=== PATIENT | male | born 2000 | race Caucasian/White ===

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

== ENCOUNTER → 2021-04-16 | Outpatient (CLI) | payer BC ==
[2021-04-16 18:15] LABS: ALBUMIN 4.3 GM/DL (3.2-5.2); ALT/SGPT 62 U/L (12-78); BILIRUBIN,TOTAL 1.2 MG/DL (0.2-1.0); BLOOD UREA NITROGEN 17 MG/DL (7-18); CALCIUM LEVEL 9.9 MG/DL (8.5-10.1); CARBON DIOXIDE LEVEL 27 MEQ/L (21-32); CHLORIDE LEVEL 104 MEQ/L (98-107); CHOLESTEROL LEVEL 169 MG/DL (<200); CHOLESTEROL RISK RATIO 3.595 (<5); CREATININE FOR GFR 0.97 MG/DL (0.70-1.30); GLUCOSE, FASTING 79 MG/DL (70-100); HDL CHOLESTEROL 47 MG/DL (>40); LDL CHOLESTEROL 104 MG/DL (<100); NON-HDL-C 122 MG/DL; POTASSIUM SERUM 5.1 MEQ/L (3.5-5.1); SODIUM LEVEL 139 MEQ/L (136-145); TOTAL 25(OH) VITAMIN D 42.5 NG/ML (30.0-100.0); TOTAL PROTEIN 7.5 GM/DL (6.4-8.2); TRIGLYCERIDES LEVEL 89 MG/DL (<150)
== END ==
LOC: M WUC 08:44
PROVIDERS: ATTEND Pediatrics
DX: E78.49 Other hyperlipidemia (principal)

== ENCOUNTER 2021-08-07 09:17 | Inpatient (IN) | payer BC ==
[~2021-08-07] VITALS: Ht 180.3 cm; Wt 96.0 kg
[2021-08-07 10:31] LABS: HEMOGLOBIN 15.9 g/dl (13.5-17.5); MEAN CORPUSCULAR HGB CONC 33.8 g/dl (32.0-36.5); MEAN CORPUSCULAR VOLUME 91.6 fl (80.0-96.0); PLATELET COUNT, AUTOMATED 337 10^3/uL (150-450); RED BLOOD COUNT 5.13 10^6/uL (4.30-6.10); WHITE BLOOD COUNT 7.6 10^3/uL (4.0-10.0)
[2021-08-07 11:01] LABS: AMPHETAMINES LEVEL URINE NEGATIVE (NEGATIVE); BARBITURATES URINE NEGATIVE (NEGATIVE); BENZODIAZEPINES URINE NEGATIVE (NEGATIVE); CANNABINOIDS URINE NEGATIVE (NEGATIVE); COCAINE METABOLITE URINE NEGATIVE (NEGATIVE); METHADONE URINE NEGATIVE (NEGATIVE); OPIATES URINE NEGATIVE (NEGATIVE); PHENCYCLIDINE URINE NEGATIVE (NEGATIVE)
[2021-08-07 11:12] LABS: ACETAMINOPHEN LEVEL < 2.0 UG/ML (10.0-30.0); ALT/SGPT 54 U/L (12-78); BILIRUBIN,DIRECT 0.2 MG/DL (0.0-0.2); BILIRUBIN,TOTAL 0.9 MG/DL (0.2-1.0); BLOOD UREA NITROGEN 12 MG/DL (7-18); CALCIUM LEVEL 9.6 MG/DL (8.5-10.1); CARBON DIOXIDE LEVEL 30 MEQ/L (21-32); CHLORIDE LEVEL 106 MEQ/L (98-107); CREATININE FOR GFR 0.92 MG/DL (0.70-1.30); ETHYL ALCOHOL (ETHANOL) < 0.003 % (0.000-0.010); GLUCOSE, FASTING 93 MG/DL (70-100); POTASSIUM SERUM 4.9 MEQ/L (3.5-5.1); SALICYLATE LEVEL < 1.7 MG/DL (5.0-30.0); SODIUM LEVEL 138 MEQ/L (136-145); TOTAL PROTEIN 7.2 GM/DL (6.4-8.2)
[2021-08-07] MEDS ORDERED: ACETAMINOPHEN TAB 650MG DOSE (2X325MG) PO ONE (11:45)
[2021-08-07] MEDS ORDERED: MAALOX 30 ML SUSP *UDC PO PRN (14:25)
[2021-08-07] MEDS ORDERED: hydrOXYzine 50 MG TAB PO PRN (14:25)
[2021-08-07] MEDS ORDERED: MOM 30ML SUSPENSION UDC PO PRN (14:25)
[2021-08-07] MEDS ORDERED: ACETAMINOPHEN TAB 650MG DOSE (2X325MG) PO PRN (14:25)
--- NOTE | 2021-08-07 15:51 | MHIPNPDOC ---
[facility] Progress Note Progress Note DATE OF SERVICE: 08/07/21 Presented by PSA, meets criteria for involuntary admission. Referred by therapist at its due to suicidal ideation with plan to drive car into a tree. Suffering SI which has been worse for the last month. Reports depression tearfulness, decreased appetite and poor sleep, toxicology screen negative. No home medications. Vital Signs Vital Signs Date Time Temp Pulse Resp B/P (MAP) Pulse Ox O2 Delivery O2 Flow Rate FiO2 08/07/21 09:36 99.0 66 16 131/82 (98) 99 Room Air Laboratory Data 24H Labs Laboratory Tests 2 08/07/21 09:43: Nucleated Red Blood Cells % (auto) 0.0, Anion Gap 2L, Calcium Level 9.6, Total Bilirubin 0.9, Direct Bilirubin 0.2, Aspartate Amino Transf (AST/SGOT) 24, Mani ine Aminotransferase (ALT/SGPT) 54, Alkaline Phosphatase 97, Total Protein 7.2, Albumin 4.0, Albumin/Globulin Ratio 1.3, Thyroid Stimulating Hormone (TSH) 1.240, Salicylates Level < 1.7L, Urine Opiates Screen NEGATIVE, Urine Methadone Screen NEGATIVE, Acetaminophen Level < 2.0L, Urine Barbiturates Screen NEGATIVE, Urine Phencyclidine Screen NEGATIVE, Urine Amphetamines Screen NEGATIVE, Urine Benzodiazepines Screen NEGATIVE, Urine Cocaine Metabolite Screen NEGATIVE, Urine Cannabinoids Screen NEGATIVE, Ethyl Alcohol Level < 0.003 CBC/BMP Laboratory Tests 08/07/21 09:43 Current Medications Current Medications Medications (Trade) Dose Ordered Sig/Jessica Route PRN Reason Start Time Stop Time Status Last Admin Dose Admin Acetaminophen (Tylenol Tab) 650 mg Q6HP PRN PO HEADACHE or MILD DISCOMFORT 08/07/21 14:25 Al Hydrox/Mg Hydrox/Simethicone (Mylanta) 30 ml Q4HP PRN PO HEARTBURN/INDIGESTION 08/07/21 14:25 Hydroxyzine HCl (Atarax) 50 mg Q6HP PRN PO ANXIETY/AGITATION 08/07/21 14:25 Magnesium Hydroxide (Milk Of Magnesia) 30 ml DAILYPRN PRN PO CONSTIPATION 08/07/21 14:25 Trazodone HCl (Desyrel) 50 mg QHSP PRN PO INSOMNIA 08/07/21 14:25 Allergies Coded Allergies: No Known Drug Allergies (Verified Allergy, Unknown, 08/07/21) MICHAEL HAYS MD Aug 07, 2021 15:50
[2021-08-07] MEDS ORDERED: HOME MED LIST COMPLETE! XX SCH (17:15)
[2021-08-07 17:51] LABS: RSV AMPLIFICATION NEGATIVE (NEGATIVE)
[2021-08-07 18:39] VITALS: BP 137/83
[2021-08-08 06:41] VITALS: BP 120/60
--- NOTE | 2021-08-08 07:36 | MHHPEPDOC ---
General Date Of Admission: Aug 07, 2021 Legal Status: 9.39 Chief Complaint ". History of Present Illness HISTORY OF THE PRESENT ILLNESS: Patient is a 21 -year-old , male, who has a past psychiatric hx of depression. "Therapist Ezequiel Berry, at [facility] referred me here. Asked if I can make to psychiatric appointment Aug 15 2021, stated, said I'm not sure I can be there." "I was upset and crying about my grandfather and grandmother, they are the closest people to me and I can't be here without them, my grandmother has Alzheimer's, grandfather last year a few days before Halloween". He also reports break up in November from ex, "she made a new account on [employer] to contact me, she was saying she is happy my grandfather and was laughing back in April". Reports he puts himself down alot, feels "like a burden to everyone". reports depression started since age 14 or 15. R eports being alone, continues to have few friends. Reports last time had suicidal thoughts was yesterday when therapist called police, stated had "plan to drive really fast and eventually crash car". Per pSA reports had thoughts of crashing car into tree. Psychiatric Review of Systems Depression (2 or more weeks): depressed mood, anhedonia ("a good couple months"), insomnia/hypersomnia ("all i wanna do is sleep"), feelings of worthlesness, decreased energy ("always down"), psychomotor changes, suicidal thoughts Christina (4 or more days of): denies Psychosis: denies Anxiety: gen/non-specific anxiety Anxiety/ 6 months or more of: restlessness, keyed up, easily fatigued, diff iculty concentrating, sleep disturbance Past Psychiatric History Previous Psychiatric Diagnosis: anxiety, depression Previous Psychiatric Admissions: none Suicide Attempts: denies Psychiatric Follow-up: [facility], has appointment scheduled with Dr Jay Aug 15, has not seen yet Psychiatric medications: took self off fluoxetine 60 mg, last dose couple months ago, states wasn't helping. cephalexin for allergies Past Medical History Medical Problems seasonal allergies, denies other conditions Head Injury: No Seizures: No Hospitalizations: No Surgeries: No Family Medical/Psychiatric HX Medical Problems depression both sides of family Psychiatric Disorders: Yes Addiction: No Suicide Attemps/Completions: No Addiction History denies Social History Childhood: Grew up in [place], [place] Abuse/Trauma:denies Current Living Situation: Currently lives with bio parents Education: grade 12, did 1 semester college for technology Employment: Work at [employer] [address], [employer] Social Support: Friend Raghav, parents Legal: denies Marital: single Mental Status Examination General Appearance: well groomed, appears stated age, hospital scubs/clothing Build: average Demeanor: withdrawn, guarded Eye Contact: avoidant Activity: slowed, anxious Behavior: cooperative, loss of interests, anhedonia, withdrawn Speech: clear, slow, low in volume Mood: depressed, anxious Mood "down" Affect: constricted Thought Process: logical/linear, depressed Thought Content (Delusions): none reported Thought Content (Other): none reported Thought Content (Aggressive): none reported Perception (Hallucinations): none reported Perception (Other): none reported Cognition (Impairment of): none reported Cognition(Intelligence Est.): average Oriented: Awake, Alert, Oriented times three Insight: fair Judgment: Poor Psychosis: Denies Diagnoses Major depression disorder, moderate, recurrent, with anxious distress A-FIB/CHADSVASC A-FIB History Current/History of A-Fib/PAF?: No Current PO Anticoag Therapy: No Age/Risk Factor Scoring CHADSVASC: CHADSVASC Response (Comments) Value Age Risk Factor Age < 65 years old 0 Gender Risk Factor Male 0 Hx of CHF No 0 Hx of HTN No 0 Hx of Stroke/TIA/or VTE No 0 Hx of Diabetes No 0 Hx of Vascular Disease No 0 Total 0 Treatment Treatment ordered: NONE Reason Anticoagulant not given: Not indicated/[id number] Assessment Patient is a 21 -year-old , male, who has a past psychiatric hx of depression, who presents with police from [facility] appointment for suicidal ideation and plan to crash car in context of worsening depression and SI for months. reports chronic stressors of grandfather passing this month last year, grandmother with alzheimer's and online arguments with ex gf within the past few months after breakup. Report s"depression is just there" and doesn't change with season, denies christina or psychotic symptom hx. Denies drug use and labs unremarkable. TSH wnl. Reports d/c of prozac months ago due to limited benefit. Meets criteria for MDD with more than 2 weeks, low mood, anhedonia, hopelessness, low energy, suicidal ideations, increased sleep. Agrees to start effexor 37.5 mg xr with plan to titrate if tolerated well, discussed side effects including rare serotonin syndrome, sexual se, g.i disturbance, increased BP, suicidal thoughts in those under age 25. Initial Treatment Plan 1. Patient was admitted on a [9.39] status. 2. Complete history was obtained. 3. With patients permission, family will be contacted and database will be expanded. 4. Patients medication regimen will be reviewed and changed accordingly. 5. Patient will be provided with protected environment. 6. Patient will be treated with individual, group, and milieu therapies. 7. Patient will receive supportive psych-education. 8. Discharge planning will commence immediately. 9. Outpatient follow-up treatment will be strongly recommended. 10. The initial treatment plan will focus initially on: * Depression. * Risk for suicide. ESTIMATED LENGTH OF STAY: 2-5 DAYS. TIME SPENT COUNSELING AND COORDINATING INITIAL CARE: 35 minutes. Tobacco Cessation Screen If Patient is a Smoker none N/A-No Antipsychotics Vital Signs Vital Signs Date Time Temp Pulse Resp B/P (MAP) Pulse Ox O2 Delivery O2 Flow Rate FiO2 08/08/21 06:41 97.7 63 18 120/60 (80) 99 Room Air Laboratory Data 24H Labs Laboratory Tests 2 08/07/21 09:43: Nucleated Red Blood Cells % (auto) 0.0, Anion Gap 2L, Calcium Level 9.6, Total Bilirubin 0.9, Direct Bilirubin 0.2, Aspartate Amino Transf (AST/SGOT) 24, Alanine Aminotransferase (ALT/SGPT) 54, Alkaline Phosphatase 97, Total Protein 7.2, Albumin 4.0, Albumin/Globulin Ratio 1.3, Thyroid Stimulating Hormone (TSH) 1.240, Salicylates Level < 1.7L, Urine Opiates Screen NEGATIVE, Urine Methadone Screen NEGATIVE, Acetaminophen Level < 2.0L, Urine Barbiturates Screen NEGATIVE, Urine Phencyclidine Screen NEGATIVE, Urine Amphetamines Screen NEGATIVE, Urine Benzodiazepines Screen NEGATIVE, Urine Cocaine Metabolite Screen NEGATIVE, Urine Cannabinoids Screen NEGATIVE, Ethyl Alcohol Level < 0.003 08/07/21 16:45: Coronavirus (COVID-19)(PCR) NEGATIVE, Influenza Type A (RT-PCR) NEGATIVE, Influenza Type B (RT-PCR) NEGATIVE, Respiratory Syncytial Virus (PCR) NEGATIVE CBC/BMP Laboratory Tests 08/07/21 09:43 Medications No Active Prescriptions or Reported Meds Allergies Coded Allergies: No Known Drug Allergies (Verified Allergy, Unknown, 08/07/21) MICHAEL HAYS MD Aug 08, 2021 07:36
[2021-08-08] MEDS: VENLAFAXINE **XR** 37.5 MG CAPSULE PO SCH (08:51)
--- NOTE | 2021-08-08 11:16 | HPEPDOC ---
[facility] Medical History & Physical Date of Admission Aug 08, 2021 Date of Service: Aug 08, 2021 History and Physical CHIEF COMPLAINT: " Feeling depressed" HISTORY OF PRESENT ILLNESS: 29-year-old male with a past medical history of depression was sent to the emergency department for concerns of suicidal ideations. He reports over the last 1 year he has had multiple stressors including losing his grandfather, dealing with his grandmother who has advanced Alzheimer's disease, and coming out of a relationship that has led him to feel depressed and sad. He reportedly told his therapist that he would crash his car. Therefore he was sent for further evaluation. He denied homicidal ideations, however, does get thoughts of suicide but reported he would not act upon it and had no intentions to. He reported there is no way that he would crash his car as he loves it too much. At this junction, he denied headaches, blurry vision, chest pain, shortness of breath, abdominal pain, nausea, vomiting, problems with urination and bowel movements. PAST MEDICAL HISTORY: Depression PAST SURGICAL HISTORY: None reported SOCIAL HISTORY: Reports he lives at home with his parents. He denies drinking, smoking and use of recreational drugs FAMILY HISTORY: Noncontributory ALLERGIES: Please see below. REVIEW OF SYSTEMS: 10 point review of system was negative except for what is noted in the HPI HOME MEDICATIONS: Please see below. PHYSICAL EXAMINATION: VITAL SIGNS: Please see below General: Lying in bed, no acute distress Head/Neck/Throat: Trachea midline, mucous membranes moist Eyes: Sclera anicteric, PERRLA Thorax: Normal respiratory effort on room air, lungs clear to auscultation bilaterally, no wheezes/rales/rhonchi Cardiovascular: Normal rate, regular rhythm, normal S1, S2; no S3, S4, rubs/gallops/murmurs Abdomen: Bowel sounds present, soft/nontender/nondistended Genitourinary: No CVA tenderness, no Melendez in place Musculoskeletal: Moving all extremities, no edema Skin: Warm, dry Neurologic: AAOx3, speech fluent and goal-directed, no focal deficits, grossly intact LABORATORY DATA: See below. IMAGING: No imaging to review at this time MICROBIOLOGY: Please see below. ASSESSMENTPLAN: #Depression -We will defer management to psychiatry team and to further assess his suicidal ideations; and this was also explained to the patient #DVT prophylaxis -Encourage ambulation This history and physical was done in the presence of a mail manager Medicine team will sign off, reconsult if needed. Thank you for involving us in the care of Mr. Hill. Vital Signs Vital Signs Date Time Temp Pulse Resp B/P (MAP) Pulse Ox O2 Delivery O2 Flow Rate FiO2 08/08/21 09:39 Room Air 08/08/21 06:41 97.7 63 18 120/60 (80) 99 Laboratory Data Labs 24H Laboratory Tests 2 08/07/21 16:45: Coronavirus (COVID-19)(PCR) NEGATIVE, Influenza Type A (RT-PCR) NEGATIVE, Influenza Type B (RT-PCR) NEGATIVE, Respiratory Syncytial Virus (PCR) NEGATIVE Home Medications No Active Prescriptions or Reported Meds Allergies Coded Allergies: No Known Drug Allergies (Verified Allergy, Unknown, 08/07/21) A-FIB/CHADSVASC A-FIB History Current/History of A-Fib/PAF?: No Age/Risk Factor Scoring CHADSVASC: CHADSVASC Response (Comments) Value Age Risk Factor Age < 65 years old 0 Gender Risk Factor Male 0 Hx of CHF No 0 Hx of HTN No 0 Hx of Stroke/TIA/or VTE No 0 Hx of Diabetes No 0 Hx of Vascular Disease No 0 Total 0 GI STOKES M.D. Aug 08, 2021 11:16
[2021-08-08 16:23] VITALS: BP 135/63
[2021-08-09 07:20] VITALS: BP 138/58
[2021-08-09] MEDS: VENLAFAXINE **XR** 37.5 MG CAPSULE PO SCH (08:13)
[2021-08-09] MEDS ORDERED: LIDOCAINE 5% (LIDODERM) PATCH TD SCH (12:45)
--- NOTE | 2021-08-09 12:45 | MHIPNPDOC ---
[facility] Progress Note Progress Note DATE OF SERVICE: 08/09/21 HISTORY: Patient is a 21 -year-old , male, who has a past psychiatric hx of depression. "Therapist Ezequiel Berry, at [facility] referred me here. Asked if I c an make to psychiatric appointment Aug 15 2021, stated, said I'm not sure I can be there." "I was upset and crying about my grandfather and grandmother, they are the closest people to me and I can't be here without them, my grandmother has Alzheimer's, grandfather last year a few days before Halloween". He also reports break up in November from ex, "she made a new account on [employer] to contact me, she was saying she is happy my grandfather and was laughing back in April". Reports he puts himself down alot, feels "like a burden to everyone". reports depression started since age 14 or 15. Reports being alone, continues to have few friends. Reports last time had suicidal thoughts was yesterday when therapist called police, stated had "plan to drive really fast and eventually crash car". Per pSA reports had thoughts of crashing car into tree. Interval: Has not been attending groups, reports he likes to keep things to himself and this leads to a downward spiral with dark thoughts. Discussed how engaging in group can help build trust and that he can work on coping skills rather than isolating. Reports all her medications without side effects, does report some lower back pain when walking a bit, used to sit a lot reportedly and not overly bothersome. Does not feel he needs any treatment, but agrees to use a lidocaine patch. Last was suicidal ideation he pauses and states I guess not today, reports sleep to be good, states he will be thinking about going to groups when he is ready. No other acute physical complaints. Reports anxiety sometimes in context of social situations, due to trusting others and generalized worries. VITAL SIGNS: See below. NEW TEST RESULTS: None CURRENT MEDICATIONS: See below. MENTAL STATUS EXAMINATION: Patient is a 21-year old male, who is in no acute distress, mildly overweight, avoiding eye contact, appears stated age, good hygiene. Speech: Is somewhat slowed, nonspontaneous. Language skills are fair. Thought processes including: Linear and logical. Thought content: Reports on and off fleeting suicidal thoughts, but not today. Abstract reasoning, and computation: Good description of associations: Normal Description of abnormal or psychotic thoughts: Denies. Judgment: Poor, improving Insight: Poor, improving Orientation: X4 Recent and remote memory: Intact. Attention span and concentration: Fair. Language: Irish. Fund of knowledge: Average Mood: "Alright" affect: Withdrawn, dysthymic, constricted, mood congruent, appropriate DIAGNOSES: Major depression disorder, moderate, recurrent, with anxious distress Generalized anxiety disorder Social anxiety disorder ASSESSMENT: Patient continues to be depressed, mildly anxious although improved compared to yesterday reportedly, still continues to be anxious about going to [facility] and confronting feelings, emotions, unsafe thoughts. Continues to report vague suicidal ideations, but denies today on interview. Requires continued stay for stabilization of depressed mood and suicidal thoughts, safety plan MANAGEMENT PLAN: Continue Effexor present 37.5 mg extended release, will consider increasing dose to treatment dose of 75 mg xr if continues to have slow improvement, encouraged to go to groups, lidocaine patch ordered for back pain. TIME SPENT: 15 minutes. Vital Signs Vital Signs Date Time Temp Pulse Resp B/P (MAP) Pulse Ox O2 Delivery O2 Flow Rate FiO2 08/09/21 08:38 Room Air 08/09/21 07:20 98.1 68 20 138/58 (84) 99 Current Medications Current Medications Medications (Trade) Dose Ordered Sig/Jessica Route PRN Reason Start Time Stop Time Status Last Admin Dose Admin Acetaminophen (Tylenol Tab) 650 mg Q6HP PRN PO HEADACHE or MILD DISCOMFORT 08/07/21 14:25 08/08/21 18:42 Al Hydrox/Mg Hydrox/Simethicone (Mylanta) 30 ml Q4HP PRN PO HEARTBURN/INDIGESTION 08/07/21 14:25 Home Med (Home Med List Complete!) ASDIRECTED XX 08/07/21 17:15 08/07/21 17:17 DC Hydroxyzine HCl (Atarax) 50 mg Q6HP PRN PO ANXIETY/AGITATION 08/07/21 14:25 Magnesium Hydroxide (Milk Of Magnesia) 30 ml DAILYPRN PRN PO CONSTIPATION 08/07/21 14:25 Trazodone HCl (Desyrel) 50 mg QHSP PRN PO INSOMNIA 08/07/21 14:25 Venlafaxine HCl (Effexor Xr) 37.5 mg QAM PO 08/08/21 09:00 08/09/21 08:13 Allergies Coded Allergies: No Known Drug Allergies (Verified Allergy, Unknown, 08/07/21) MICHAEL HAYS MD Aug 09, 2021 12:44
[2021-08-09] MEDS: LIDOCAINE 5% (LIDODERM) PATCH TD SCH ×2 (13:05→13:14)
[2021-08-09 16:00] VITALS: BP 130/69
[2021-08-10 06:26] VITALS: BP 122/66
[2021-08-10] MEDS: LIDOCAINE 5% (LIDODERM) PATCH TD SCH (08:24)
[2021-08-10] MEDS: VENLAFAXINE **XR** 37.5 MG CAPSULE PO SCH (08:25)
--- NOTE | 2021-08-10 11:17 | MHIPNPDOC ---
[facility] Progress Note Progress Note DATE OF SERVICE: 08/10/21 HISTORY: Patient is a 21 -year-old , male, who has a past psychiatric hx of depression. "Therapist Ezequiel Berry, at [facility] referred me here. Asked if I can make to psychiatric appointment Aug 15 2021, stated, said I'm not sure I can be there." "I was upset and crying about my grandfather and grandmother, they are the closest people to me and I can't be here without them, my grandmother has Alzheimer's, grandfather last year a few days before Halloween". He also reports break up in November from ex, "she made a new account on [employer] to contact me, she was saying she is happy my grandfather and was laughing back in April". Reports he puts himself down alot, feels "like a burden to everyone". reports depression started since age 14 or 15. Reports being alone, continues to have few friends. Reports last time had suicidal thoughts was yesterday when therapist called police, stated had "plan to drive really fast and eventually crash car". Per pSA reports had thoughts of crashing car into tree. Interval: Has started to attend groups, chart reviewed. States mood is improving although continues to have some depression, states mood today is pretty good, sleep is good but interrupted due to being on the inpatient unit, agreeable to increasing Effexor XR release 75 mg daily treatment dose possible discharge on Friday if continues to improve. VITAL SIGNS: See below. NEW TEST RESULTS: None CURRENT MEDICATIONS: See below. MENTAL STATUS EXAMINATION: Patient is a 21-year old male, who is in no acute distress, mildly overweight, improved eye contact, appears stated age, good hygiene. Speech: Mildly slowed, spontaneous Language skills are fair. Thought processes including: Linear and logical. Thought content: Reports on and off fleeting suicidal thoughts, again reports not having any suicidal thoughts today Abstract reasoning, and computation: Good description of associations: Normal Description of abnormal or psychotic thoughts: Denies. Judgment: Fair, improving Insight: Fair, improving Orientation: X4 Recent and remote memory: Intact. Attention span and concentration: Fair. Language: Yakut. Fund of knowledge: Average Mood: "Pretty good" affect: Withdrawn, less dysthymic, mildly constricted DIAGNOSES: Major depression disorder, moderate, recurrent, with anxious distress Generalized anxiety disorder Social anxiety disorder ASSESSMENT: Patient continues to report improvements in depression, going to State and begin the unit talking about his emotions, feelings, and engaging art projects he says has been helpful for him instead of isolating and ruminating on negative thoughts. Agreeable to increasing Effexor to 75 mg once daily, requires continued stay for stabilization of depressed mood and suicidal thoughts, safety planning. MANAGEMENT PLAN: Increased Effexor to 75 mg extended release, encouraged to continue to go to groups, discontinued lidocaine patch ordered for back pain, has been refusing. TIME SPENT: 15 minutes. Vital Signs Vital Signs Date Time Temp Pulse Resp B/P (MAP) Pulse Ox O2 Delivery O2 Flow Rate FiO2 08/10/21 08:10 Room Air 08/10/21 06:26 97.7 61 18 122/66 (84) 98 Current Medications Current Medications Medications (Trade) Dose Ordered Sig/Jessica Route PRN Reason Start Time Stop Time Status Last Admin Dose Admin Acetaminophen (Tylenol Tab) 650 mg Q6HP PRN PO HEADACHE or MILD DISCOMFORT 08/07/21 14:25 08/08/21 18:42 Al Hydrox/Mg Hydrox/Simethicone (Mylanta) 30 ml Q4HP PRN PO HEARTBURN/INDIGESTION 08/07/21 14:25 Home Med (Home Med List Complete!) ASDIRECTED XX 08/07/21 17:15 08/07/21 17:17 DC Hydroxyzine HCl (Atarax) 50 mg Q6HP PRN PO ANXIETY/AGITATION 08/07/21 14:25 Lidocaine (Lidoderm Patch) 1 patch DAILY TD 08/09/21 09:00 Lidocaine (Lidoderm Patch) 1 patch DAILY TD 08/09/21 12:45 08/09/21 12:50 DC Magnesium Hydroxide (Milk Of Magnesia) 30 ml DAILYPRN PRN PO CONSTIPATION 08/07/21 14:25 Non-Formulary Medication ( See Comment Field Below ) REMOVE LIDODERM PATCH DAILY@ XX 08/09/21 21:00 08/09/21 21:48 Trazodone HCl (Desyrel) 50 mg QHSP PRN PO INSOMNIA 08/07/21 14:25 Venlafaxine HCl (Effexor Xr) 37.5 mg QAM PO 08/08/21 09:00 08/10/21 08:25 Allergies Coded Allergies: No Known Drug Allergies (Verified Allergy, Unknown, 08/07/21) MICHAEL HAYS MD Aug 10, 2021 11:17
[2021-08-10 16:16] VITALS: BP 120/63
[2021-08-10] MEDS: traZODone 50 MG TAB PO PRN (20:11)
[2021-08-11 06:21] VITALS: BP 115/53
[2021-08-11] MEDS: VENLAFAXINE **XR** 75MG CAPSULE PO SCH (08:17)
--- NOTE | 2021-08-11 15:25 | MHIPNPDOC ---
[facility] Progress Note Progress Note DATE OF SERVICE: 08/11/21 HISTORY: Patient is a 21 -year-old , male, who has a past psychiatric hx of depression. "Therapist Ezequiel Berry, at [facility] referred me here. Asked if I c an make to psychiatric appointment Aug 15 2021, stated, said I'm not sure I can be there." "I was upset and crying about my grandfather and grandmother, they are the closest people to me and I can't be here without them, my grandmother has Alzheimer's, grandfather last year a few days before Halloween". He also reports break up in November from ex, "she made a new account on [employer] to contact me, she was saying she is happy my grandfather and was laughing back in April". Reports he puts himself down alot, feels "like a burden to everyone". reports depression started since age 14 or 15. Reports being alone, continues to have few friends. Reports last time had suicidal thoughts was yesterday when therapist called police, stated had "plan to drive really fast and eventually crash car". Per pSA reports had thoughts of crashing car into tree. Interval: Reports improved mood, denies side effects from increasing dose of Effexor. Introduced myself to him as currently he is scheduled to see me in the outpatient practice. He is aware of his medications available to him if he needs them, stated he used trazodone last night for sleep due to the addition of a roommate, feels that he is getting good sleep here but will not need the medication upon discharge. VITAL SIGNS: See below. NEW TEST RESULTS: None CURRENT MEDICATIONS: See below. MENTAL STATUS EXAMINATION: Patient is a 21-year old male, who is dressed in personal clothing, good hygiene and grooming. Speech: Is clear with regular rate, rhythm, and volume. Language skills are intact. Thought processes including: Linear and coherent. Thought content: Focused on attending groups and maintaining his spirits. Abstract reasoning, and computation: Intact. Description of associations: Linear. Description of abnormal or psychotic thoughts: Denies suicidal ideation, reports no AVH or paranoia. Judgment: Good. Insight: Fair. Orientation: X3. Recent and remote memory: Intact. Attention span and concentration: Intact Mood: "I feel a bit better". Affect: Euthymic, congruent with stated mood, stable. DIAGNOSES: Major depression disorder, moderate, recurrent, with anxious distress Generalized anxiety disorder Social anxiety disorder ASSESSMENT: Patient continues to report improvements in depression, going to groups and begin the unit talking about his emotions, feelings, and engaging art projects he says has been helpful for him instead of isolating and ruminating on negative thoughts. Requires continued stay for stabilization of depressed mood and suicidal thoughts, safety planning. Based upon weekday provider likely discharge on Friday. MANAGEMENT PLAN: Continue current medication regimen, patient encouraged to attend groups. TIME SPENT: 15 minutes. Vital Signs Vital Signs Date Time Temp Pulse Resp B/P (MAP) Pulse Ox O2 Delivery O2 Flow Rate FiO2 08/11/21 08:19 Room Air 08/11/21 06:21 99.3 109 18 115/53 (73) 92 Current Medications Current Medications Medications (Trade) Dose Ordered Sig/Jessica Route PRN Reason Start Time Stop Time Status Last Admin Dose Admin Acetaminophen (Tylenol Tab) 650 mg Q6HP PRN PO HEADACHE or MILD DISCOMFORT 08/07/21 14:25 08/08/21 18:42 Al Hydrox/Mg Hydrox/Simethicone (Mylanta) 30 ml Q4HP PRN PO HEARTBURN/INDIGESTION 08/07/21 14:25 Home Med (Home Med List Complete!) ASDIRECTED XX 08/07/21 17:15 08/07/21 17:17 DC Hydroxyzine HCl (Atarax) 50 mg Q6HP PRN PO ANXIETY/AGITATION 08/07/21 14:25 Lidocaine (Lidoderm Patch) 1 patch DAILY TD 08/09/21 09:00 08/10/21 11:17 DC Lidocaine (Lidoderm Patch) 1 patch DAILY TD 08/09/21 12:45 08/09/21 12:50 DC Magnesium Hydroxide (Milk Of Magnesia) 30 ml DAILYPRN PRN PO CONSTIPATION 08/07/21 14:25 Non-Formulary Medication ( See Comment Field Below ) REMOVE LIDODERM PATCH DAILY@ XX 08/09/21 21:00 08/10/21 11:17 DC 08/09/21 21:48 Trazodone HCl (Desyrel) 50 mg QHSP PRN PO INSOMNIA 08/07/21 14:25 08/10/21 20:11 Venlafaxine HCl (Effexor Xr) 37.5 mg QAM PO 08/08/21 09:00 08/10/21 11:17 DC 08/10/21 08:25 Venlafaxine HCl (Effexor Xr) 75 mg DAILY PO 08/11/21 09:00 08/11/21 08:17 Allergies Coded Allergies: No Known Drug Allergies (Verified Allergy, Unknown, 08/07/21) JOEL ROQUE MD Aug 11, 2021 15:25
[2021-08-11 16:33] VITALS: BP 127/59
[2021-08-11] MEDS: traZODone 50 MG TAB PO PRN (21:13)
[2021-08-12 06:00] VITALS: BP 118/75
[2021-08-12] MEDS: VENLAFAXINE **XR** 75MG CAPSULE PO SCH (08:19)
[2021-08-12 16:46] VITALS: BP 122/67
[2021-08-12] MEDS: traZODone 50 MG TAB PO PRN (21:30)
[2021-08-13 07:18] VITALS: BP 143/65
[2021-08-13] MEDS: VENLAFAXINE **XR** 75MG CAPSULE PO SCH (08:17)
[2021-08-13] MEDS ORDERED: TRAZ-252 PO (09:54)
[2021-08-13] MEDS ORDERED: VENL75CA47 PO (09:54)
--- NOTE | 2021-08-13 10:34 | MHDSPDOC ---
[facility] Discharge Summary Discharge Summary DATE OF ADMISSION: Aug 07, 2021 at 14:23 DATE OF DISCHARGE: August 13, 2021 Discharge diagnoses: Major depression disorder, moderate, recurrent, with anxious distress Generalized anxiety disorder Social anxiety disorder Reason for admission: On day of admission: Patient is a 21 -year-old , male, who has a past psychiatric hx of depression. "Therapist Ezequiel Berry, at [facility] referred me here. Asked if I can make to psychiatric appointment Aug 15 2021, stated, said I'm not sure I can be there." "I was upset and crying about my grandfather and grandmother, they are the closest people to me and I can't be here without them, my grandmother has Alzheimer's, grandfather last year a few days before Halloween". He also reports break up in November from ex, "she made a new account on [employer] to contact me, she was saying she is happy my grandfather and was laughing back in April". Reports he puts himself down alot, feels "like a burden to everyone". reports depression started since age 14 or 15. Reports being alone, continues to have few friends. Reports last time had suicidal thoughts was yesterday when therapist called police, stated had "plan to drive really fast and eventually crash car". Per pSA reports had thoughts of crashing car into tree. Vital signs: See below Consultants involved: See medical H&P by hospitalist Treatment and progress on the unit: Patient was admitted to the [facility] 39 on a legal status and was afforded the following treatment modalities: 1. Individual therapy 2. Group therapy 3. Medication management 4. Milieu therapy 5. Safe environment Hospital course: Patient was admitted to the [facility] on a 39 legal status. Was medically cleared prior to coming up to the [facility]. Story was corroborated from collateral from mother Bradley without treatment team. Patient reported initially having low mood, low energy, suicidal thoughts prior to admission, erratic sleep. Was started on Effexor 37.5 mg extended release, reported some improvement in mood, concentration and energy. Patient found medications beneficial and tolerated them well. Dose of Effexor extended release was increased to 75 mg p.o. daily, which she reported tolerating without side effects over the weekend prior to discharge. Patient attended groups daily during stay, was encouraged to open up in groups and explore feelings, emotions as he usually is quite reserved and this leads to not seek supports, worsening symptoms of depression. Patient's symptoms improved with treatment. On day of discharge patient denied depression, anxiety, insomnia, suicidal or homicidal ideations intent or plan, hallucinations, delusions. Patient was discharged home with follow-up. Patient felt safe for discharge. Was offered continued stay on a voluntary admission status but refused. Safety plan was created with patient, plans to get rides in subsequent weeks following his parents, he is future oriented and wants to return to work, also considering going to treat school as a long-term goal, letters were signed stating he was hospitalized during this period without providing unneeded details. Discharge assessment: On today's interview patient is alert and oriented, dressed appropriately. Hygiene and grooming is well-kept. Smiles on approach and is pleasant and engaged on interview, laughs at times. Denies depression and anxiety. Denies suicidal homicidal ideation, intent or planning. Denies and is not observed with christina or psychotic symptoms of delusions, hallucinations, bizarre thinking, obsessions, paranoia, ruminations, illogical thoughts, flight of ideas or having poor insight or judgment. Patient has normal mentation, declines further hospitalization on a voluntary status and meets criteria for discharge today, patient encouraged to return the hospital if symptoms worsen or change and encouraged to call unit if they feel they need provider's questions to be answered or help with medications or care. Mental status: Patient is a 21-year old male, who is in no acute distress, mildly overweight, good eye contact, appears stated age, good hygiene, short hair Speech: Mildly slowed, spontaneous Language skills are fair. Thought processes including: Linear and logical. Thought content: Reports on and off fleeting suicidal thoughts, again reports not having any suicidal thoughts today Abstract reasoning, and computation: Good description of associations: Normal Description of abnormal or psychotic thoughts: Denies. Judgment: Good, improved Insight: Good Orientation: X4 Recent and remote memory: Intact. Attention span and concentration: Fair. Language: Congolese. Fund of knowledge: Average Mood: "good, more than happy to get back to things" affect: Euthymic, full, does smile and laugh at times, appropriate, mood congruent Medications on discharge: -see medication reconciliation: CSSRS on discharge: Wish to be : No nonspecific active suicidal thoughts: No lifetime attempts: 0 interrupted attempts: 0 aborted attempts: 0 preparatory acts or behavior: None Taking into consideration safety state, status, modifiable, non-modifiable risk factors patient is at low risk on discharge for suicide according to [place] suicide evaluation. PLAN/FOLLOWUP ARRANGEMENTS: Has an outpatient appointment at [facility] August 15, [address] Jay. See social work notes [facility] follow-up for further details. The amount of time spent in the coordination of care for this patient was approximately 25 minutes. ETOH/Disorder Med Rx ETOH/DRUG DISORDER RX: N/A Vital Signs/I&Os Vital Signs Date Time Temp Pulse Resp B/P (MAP) Pulse Ox O2 Delivery O2 Flow Rate FiO2 08/13/21 09:06 Room Air 08/13/21 07:18 98.1 72 20 143/65 (91) 99 Medications Scheduled Venlafaxine HCl (Venlafaxine HCl ER) 75 Mg Cap.er.24h, 75 MG PO DAILY for depression, #7 Scheduled PRN Trazodone HCl (Trazodone HCl) 50 Mg Tablet, 50 MG PO QHSP PRN for INSOMNIA, #7 Allergies Coded Allergies: No Known Drug Allergies (Verified Allergy, Unknown, 08/07/21) MICHAEL HAYS MD Aug 13, 2021 10:34
== END 2021-08-13 12:15 | disposition home or self-care (01) | DRG 751 ==
LOC: M ED 09:17 → M ED INP 14:23 → M PSY 18:14
PROVIDERS: ADMIT Student in an Organized Health Care Education/Training Program; ATTEND Student in an Organized Health Care Education/Training Program
DX: F33.1 Major depressive disorder, recurrent, moderate (principal); R45.851 Suicidal ideations; F40.10 Social phobia, unspecified; F41.1 Generalized anxiety disorder; Z81.8 Family history of other mental and behavioral disorders; Z63.4 Disappearance and death of family member; Z63.6 Dependent relative needing care at home; Z20.822 Contact with and (suspected) exposure to COVID-19

== ENCOUNTER → 2022-02-11 | Outpatient (REF) | payer BC ==
[~2022-02-11] MED LIST: TRAZ-252 PO; VENL75CA47 PO
== END ==
LOC: M SFHCDERM 18:10
PROVIDERS: ATTEND Physician Assistant
DX: D49.2 Neoplasm of unspecified behavior of bone, soft tissue, and skin (principal)

== ENCOUNTER → 2022-09-18 | Outpatient (CLI) | payer BC ==
[2022-09-18 10:42] LABS: HEMATOCRIT 50.3 % (42.0-52.0); HEMOGLOBIN 16.1 g/dl (13.5-17.5); MEAN CORPUSCULAR HEMOGLOBIN 30.1 pg (27.0-33.0); PLATELET COUNT, AUTOMATED 337 10^3/uL (150-450); RED BLOOD COUNT 5.35 10^6/uL (4.30-6.10); WHITE BLOOD COUNT 8.3 10^3/uL (4.0-10.0)
[2022-09-18 12:11] LABS: ALBUMIN 3.9 GM/DL (3.2-5.2); ALT/SGPT 46 U/L (12-78); BILIRUBIN,TOTAL 1.2 MG/DL (0.2-1.0); BLOOD UREA NITROGEN 19 MG/DL (7-18); CALCIUM LEVEL 9.5 MG/DL (8.5-10.1); CARBON DIOXIDE LEVEL 29 MEQ/L (21-32); CHLORIDE LEVEL 103 MEQ/L (98-107); CHOLESTEROL LEVEL 244 MG/DL (<200); CHOLESTEROL RISK RATIO 5.191 (<5); CREATININE FOR GFR 1.03 MG/DL (0.70-1.30); GLOMERULAR FILTRATION RATE > 60.0 (>60); GLUCOSE, FASTING 79 MG/DL (70-100); HDL CHOLESTEROL 47 MG/DL (>40); LDL CHOLESTEROL 169 MG/DL (<100); NON-HDL-C 197 MG/DL; SODIUM LEVEL 135 MEQ/L (136-145); TOTAL PROTEIN 7.3 GM/DL (6.4-8.2); TRIGLYCERIDES LEVEL 140 MG/DL (<150)
[2022-09-18 20:26] LABS: HEMOGLOBIN A1c 5.1 %
== END ==
LOC: M PLALAB 09:16
PROVIDERS: ATTEND Nurse Practitioner Adult Health
DX: Z13.29 Encounter for screening for other suspected endocrine disorder (principal)

== ENCOUNTER → 2024-10-26 | Outpatient (CLI) | payer BC ==
[2024-10-26 18:08] LABS: HEMOGLOBIN 15.8 g/dl (13.5-17.5); MEAN CORPUSCULAR HEMOGLOBIN 30.3 pg (27.0-33.0); MEAN CORPUSCULAR HGB CONC 33.6 g/dl (32.0-36.5); MEAN CORPUSCULAR VOLUME 90.2 fl (80.0-96.0); PLATELET COUNT, AUTOMATED 317 10^3/uL (150-450); RED BLOOD COUNT 5.21 10^6/uL (4.30-6.10); WHITE BLOOD COUNT 9.7 10^3/uL (4.0-10.0)
[2024-10-26 18:37] LABS: ALBUMIN 4.2 G/DL (3.2-5.2); ALKALINE PHOSPHATASE 86 U/L (40-129); ALT/SGPT 25 U/L (7.0-40); AST/SGOT 15 U/L (<34); BILIRUBIN,TOTAL 1.8 MG/DL (0.3-1.2); BLOOD UREA NITROGEN 14 MG/DL (9-23); CALCIUM LEVEL 10.2 MG/DL (8.5-10.1); CARBON DIOXIDE LEVEL 28 MMOL/L (20-31); CHLORIDE LEVEL 106 MMOL/L (98-107); CREATININE FOR GFR 0.86 MG/DL (0.70-1.30); GLOMERULAR FILTRATION RATE > 60.0 (>60); GLUCOSE, FASTING 80 MG/DL (60-100); POTASSIUM SERUM 4.8 MMOL/L (3.5-5.1); SODIUM LEVEL 142 MMOL/L (136-145); TOTAL PROTEIN 7.3 G/DL (5.7-8.2)
[2024-10-26 18:40] LABS: THYROID STIMULATING HORMONE 1.654 uIU/ML (0.55-4.78)
[2024-10-26 18:54] LABS: HEMOGLOBIN A1c 4.8 % (4.0-6.0)
== END ==
LOC: M WUC 14:24
PROVIDERS: ATTEND Nurse Practitioner Adult Health
DX: Z00.00 Encounter for general adult medical examination without abnormal findings (principal); Z13.29 Encounter for screening for other suspected endocrine disorder; Z13.1 Encounter for screening for diabetes mellitus